=== PATIENT | female | born 1950 | race Caucasian/White ===

== ENCOUNTER 2019-09-28 07:15 | Outpatient (CLI) | payer MEDICARE, SELFPAY ==
--- NOTE | ~2019-09-28 | MM_ITS ---
EXAMINATION: MM screening jose maria BI w praveen HISTORY: Screening mammogram TECHNIQUE: Craniocaudal and mediolateral oblique 3-D tomosynthesis images were obtained and synthetic 2-D images were generated. CAD analysis was submitted and interpreted. COMPARISON: 09/23/2018 bilateral digital screening mammogram 05/31/2016 diagnostic left digital mammogram and limited left breast ultrasound 05/06/2016 bilateral digital screening mammogram BREAST PARENCHYMAL COMPOSITION: There are scattered areas of fibroglandular density. FINDINGS: There is a biopsy marker on the left seminal history of prior benign left breast biopsy. St able probable 4 mm benign intramammary lymph node in the lower outer quadrant of the left breast. The re is no evidence of suspicious mass, calcification, or architectural distortion to suggest malignanc y in either breast. There has been no suspicious interval change. IMPRESSION: 1. No mammographic evidence of malignancy. 2. Recommend routine screening mammography in one year. BI-RADS Category 2: Benign finding(s). Reviewed, dictated and finalized at location A.
== END 2019-09-28 07:16 | disposition home or self-care (01) ==
PROVIDERS: PCP Family Medicine; Visit Provider Family Medicine
DX: Z12.31 Encounter for screening mammogram for malignant neoplasm of breast (principal)
CPT/HCPCS: 77063; 77067

== ENCOUNTER → 2020-09-27 07:45 | Outpatient (CLI) | payer MEDICARE, SELFPAY ==
--- NOTE | ~2020-09-27 | US_ITS ---
US abdomen limited INDICATION: Right upper quadrant abdominal pain PROCEDURE: Realtime right upper abdominal ultrasound. COMPARISON: No prior studies for comparison. FINDINGS: The pancreas is normal without focal mass or pancreatic ductal dilation. Liver echotexture is normal without focal mass or intrahepatic biliary dilatation. There is normal directional flow i n the portal vein. There are gallstones. No gallbladder wall thickening or pericholecystic fluid. Common bile duct mitch ures 6 mm. No sonographic Carroll's sign. IMPRESSION: 1: Cholelithiasis. Reviewed, dictated and finalized at location A. IMPRESSION: 1: Cholelithiasis.
== END ==
PROVIDERS: PCP Family Medicine; Visit Provider Family Medicine
DX: R10.11 Right upper quadrant pain (principal); K80.20 Calculus of gallbladder without cholecystitis without obstruction
CPT/HCPCS: 76705

== ENCOUNTER 2020-10-25 10:29 | Outpatient (CLI) | payer MEDICARE, SELFPAY ==
--- NOTE | ~2020-10-25 | MM_ITS ---
EXAMINATION: MM screening jose maria BI w praveen HISTORY: Screening TECHNIQUE: Craniocaudal and mediolateral oblique 3-D tomosynthesis images were obtained and synthetic 2-D images were generated. CAD analysis was submitted and interpreted. COMPARISON: Comparison to multiple prior studies sequentially, with oldest reviewed study dated 10/2014. BREAST PARENCHYMAL COMPOSITION: There are scattered areas of fibroglandular density. There FINDINGS: There is a focal asymmetry laterally in the right breast on CC view. There has been slight enlargement of masses in the upper outer quadrant of the left breast. IMPRESSION: 1. Developing right breast asymmetry and left breast masses. 2. Additional mammographic views and possible breast ultrasound are recommended. BI-RADS Category 0: Incomplete: Needs additional imaging evaluation. Reviewed, dictated and finalized at location A. IMPRESSION: 1. Developing right breast asymmetry and left breast masses. 2. Additional mammographic views and possible breast ultrasound are recommended . BI-RADS Category 0: Incomplete: Needs additional imaging evaluation.
== END 2020-10-25 10:30 | disposition home or self-care (01) ==
LOC: ANHIMG 10:30
PROVIDERS: PCP Family Medicine; Visit Provider Family Medicine
DX: Z12.31 Encounter for screening mammogram for malignant neoplasm of breast (principal)
CPT/HCPCS: 77063; 77067

== ENCOUNTER 2020-10-27 08:04 | Outpatient (CLI) | payer MEDICARE, SELFPAY ==
--- NOTE | 2020-10-27 08:00 | ECG_ITS ---
Measurements Intervals [place] Rate: 69 P: 30 AK: 163 QRS: 26 QRSD: 111 T: 32 QT: 395 QTc: 424 Interpretive Statements SINUS RHYTHM INCOMPLETE RIGHT BUNDLE BRANCH BLOCK BASELINE ARTIFACT- III BORDERLINE ECG Electronically Signed On 10-27-2020 8:44:11 CDT by Julio Berrios D.O.
[2020-10-27 09:28] LABS: Alanine Aminotransferase 18 U/L (4-35); Albumin Level 4.4 g/dL (3.5-5.1); Alkaline Phosphatase 70 U/L (38-126); Amylase 64 U/L (30-110); Aspartate Amino Transferase 25 U/L (14-36); Bilirubin,Total 0.4 mg/dL (0.2-1.3); Lipase 192 U/L (23-300)
== END 2020-10-27 08:05 | disposition home or self-care (01) ==
LOC: ANHSURGERY 08:09
PROVIDERS: PCP Family Medicine; Visit Provider Surgery
DX: K80.10 Calculus of gallbladder with chronic cholecystitis without obstruction (principal); I10 Essential (primary) hypertension; Z01.818 Encounter for other preprocedural examination; I45.10 Unspecified right bundle-branch block
CPT/HCPCS: 36415; 80076; 82150; 83690; 86850; 86900; 86901; 93005

== ENCOUNTER 2020-11-02 00:31 | Day surgery (SDC) | payer MEDICARE, SELFPAY ==
[2020-10-24 14:06] VITALS: BMI 34.4
--- NOTE | 2020-11-01 12:29 | WPDANESEPPF ---
Anes - Initial Pre Proc Eval Procedure: Operation Date: 11/02/20 13:00 Proposed Procedures p Laparoscopic Cholecystectomy - Kike Hameed MD Date/Time: 11/01/20 12:29 Surgeon: Kike Hameed MD Pre Op Diagnosis: Chronic Cholecystitis with Stones Patient Data Age: 70 Gender: F Height: 1.57 m Weight: 85.45 kg Allergies Allergy/AdvReac Type Severity Reaction Status Date / Time No Known Allergies Allergy Verified 11/02/20 11:10 Home Medications Medication Instructions Recorded Confirmed Type ipratropium bromide 21 mcg (0.03 2 spray NASAL BID #30 ml 09/08/19 11/02/20 Rx %) nasal spray gabapentin 300 mg capsule See Rx Instructions PO .COMPLEX 02/13/20 11/02/20 Rx #540 cap cholecalciferol (vitamin D3) 50 50 mcg PO DAILY 02/22/20 11/02/20 History mcg (2,000 unit) capsule objqavibcqfz-dtwndbuh-nqyaix tablet 1 tablet PO DAILY 02/22/20 11/02/20 History omega-3 fatty acids 1,000 mg 1,000 mg PO DAILY 02/22/20 11/02/20 History capsule lisinopril 40 mg tablet 40 mg PO DAILY #90 tablet 07/31/20 11/02/20 Rx omeprazole 40 mg capsule,delayed 40 mg PO DAILY #90 cap 09/18/20 11/02/20 Rx release tramadol 50 mg tablet 50 mg PO Q6H PRN #90 tablet 10/18/20 11/02/20 Rx sodium,potassium,mag sulfates See Rx Instructions .ROUTE 10/23/20 Rx [Suprep Bowel Prep Kit] .COMPLEX #1 ml etodolac [Lodine] 400 mg PO BID 10/24/20 11/02/20 History hydrochlorothiazide 25 mg PO BID 10/24/20 11/02/20 History simvastatin 10 mg PO HS 10/24/20 11/02/20 History Patient hx anesthesia problems: none Family hx anesthesia problems: none PMFSH Past Medical History Medical History (Updated 11/01/20 @ 12:29 by Adarsh Tesfaye MD) Chronic renal insufficiency, stage III (moderate) Chronic rhinitis Essential hypertension FH: colon polyps Iron deficiency anemia Knee osteoarthritis Mixed hyperlipidemia Neuropathy of lower extremity Obesity (BMI 30-39.9) Prediabetes Vitamin D deficiency Surgical History Surgical History H/O oophorectomy History of knee replacement Family History Family History Other Diabetes mellitus Family history of arthritis Family history of coronary artery disease Family history of elevated blood lipids Family history of malignant neoplasm of ovary Hypertension Social History Social History Smoking status: Never smoker Second hand tobacco smoke exposure: No Alcohol intake: never Substance use: never Substance use type: does not use 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 Questions were solicited and answers provided to the satisfaction of the patient/family/POA.
[2020-11-02] VITALS (7 sets, daily range): BP systolic 101–131; BP diastolic 54–80; PULSE 47–72; RESP 12–17; TEMP 36.2–37; O2SAT 97–100
--- NOTE | 2020-11-02 10:23 | WPDHPUPDATE1 ---
History and Physical Update Update Date/Time: 11/02/20 10:23 History and Physical has been reviewed, including an updated exam of the patient. There are NO changes in the patient's condition. Risks, benefits, and alternatives have been discussed and questions answered. Patient agrees to proceed with procedure.
[2020-11-02] MEDS: ACETAMINOPHEN 500 MG TABLET 1000 MG PO (11:34)
[2020-11-02] MEDS: LACTATED RINGERS 1,000 ML 30 ML IV CONT (11:44)
[2020-11-02] MEDS: KETOROLAC 15 MG/ML VIAL (*BKC) IV PUSH (11:46)
[2020-11-02] MEDS: ceFAZolin 2 GM/D5W 50 ML 2 GM/50 ML BAG IVPB (13:11)
--- NOTE | 2020-11-02 13:23 | W.PM.PROC2 ---
Procedure Note - Detailed Date of Procedure 11/02/20 Pre-op Diagnosis Chronic Cholecystitis with Stones Post-op Diagnosis same Procedure Performed Laparoscopic cholecystectomy Surgeon Kike Hameed MD Insurance Producer James BENITEZ Anesthesia general and local (0.25% Marcaine with epinephrine) Indications Patient is a 70-year-old woman with postprandial right upper quadrant abdominal pain. The pain is worse with large and very rich foods. It sometimes is associated with vomiting and diarrhea. She was noted to have gallstones on ultrasound. She is taken to surgery now for laparoscopic cholecystectomy for chronic cholecystitis. Findings Mild chronic inflammation was noted. No biliary ductal dilatation was appreciated. Some fatty change was noted in the liver. No large stones were appreciated. Description of Procedure The patient was taken to surgery and induced into general anesthesia. The abdomen is prepped and draped. Trocars were placed in the usual fashion using 0.25% Marcaine with epinephrine an applied Medical optical trocars. The gallbladder was decompressed with a laparoscopic aspirator. The cholecystotomy was closed with a Vicryl endoloop. The gallbladder was retracted anterosuperiorly. Dissection was carried out in the cholecystohepatic triangle. The cystic duct and cystic artery were dissected out clearly. The gallbladder was dissected off the liver at its lower 3rd. Critical view was achieved. The cystic artery was very diminutive and was cauterized and divided. The cystic duct was securely clipped and divided. We then dissected the gallbladder free of its remaining peritoneal attachments to the liver. No entry into the gallbladder was made during the dissection. The gallbladder was placed then in an Endo-Catch bag and retrieved through the 10 11 epigastric trocar site. We then replaced the epigastric trocar reviewed the right upper quadrant. All looked good with no evidence of bleeding or bile leakage. We irrigated the area and suctioned dry a couple of different times. All looked satisfactory. We then evacuated CO2 and removed the trocar sleeves. Skin wounds were closed with subcuticular 4-0 Monocryl skin suture. The wounds were dressed with Exofin surgical adhesive. Patient was awakened and taken to recovery in good condition. Sponge needle counts were correct x2. Estimated Blood Loss 5 Drains No Packing No Pathology yes (Gallbladder) Complications No immediate complications Condition stable Disposition PACU
[2020-11-02] MEDS: LIDO 1%/EPINEPHRINE 1:100,000 50 ML VIAL INFILTRATE (13:41)
--- NOTE | 2020-11-02 14:43 | SUR.PHASEI ---
1430-DR. DANIELS AT [facility] TO SPEAK WITH PT.
== END 2020-11-02 15:45 | disposition home or self-care (01) ==
PROVIDERS: PCP Family Medicine; Visit Provider Surgery
PROC: 0FT44ZZ Resection of Gallbladder, Percutaneous Endoscopic Approach (ICD-10-PCS; CPT 47562; principal; 2020-11-02 13:00)
DX: K80.10 Calculus of gallbladder with chronic cholecystitis without obstruction (principal); I12.9 Hypertensive chronic kidney disease with stage 1 through stage 4 chronic kidney disease, or unspecified chronic kidney disease; N18.30 Chronic kidney disease, stage 3 unspecified; D50.9 Iron deficiency anemia, unspecified; E78.2 Mixed hyperlipidemia; R73.03 Prediabetes; G62.9 Polyneuropathy, unspecified; E55.9 Vitamin D deficiency, unspecified; E66.9 Obesity, unspecified; Z68.33 Body mass index [BMI] 33.0-33.9, adult
CPT/HCPCS: 47562; 36415; 80076; 82150; 83690; 86850; 86900; 86901; 88304; 93005; A9270; C1713; J0690; J1100; J1885; J2001; J2405; J2704; J2710; J3010; J7120

== ENCOUNTER → 2020-11-27 09:13 | Outpatient (CLI) | payer MEDICARE, SELFPAY ==
--- NOTE | ~2020-11-27 | MMUS_ITS ---
EXAMINATION: MM diagnostic jose maria BI w praveen, US breast LT limited HISTORY: Developing right breast asymmetry and left breast masses TECHNIQUE: Additional 3-D tomosynthesis images of both breasts were performed and synthetic 2-D image s were generated. CAD analysis was submitted and interpreted. High resolution left upper outer and lo wer outer breast ultrasound was performed. COMPARISON: 10/25/2020 bilateral digital screening mammogram 09/23/2018, 05/06/2016 bilateral digital screening mammogram FINDINGS: MAMMOGRAPHIC FINDINGS: There is a biopsy marker anteriorly in the upper outer left breast; history of prior benign left breast biopsy. There is a 5 mm circumscribed mass in the mid to posterior lower outer left breast, present on 017, not significantly changed. There is a 3 mm circumscribed mass in the mid to posterior lower mid left breast not significantly ch anged since 05/06/2016. No suspicious mass or architectural distortion, malignant calcification, skin thickening or retractio n or significant new finding of either breast is evident. ULTRASOUND: 2:00 5 cm from nipple: Septated 2.4 x 2.8 mm cyst 4:00 5 cm from nipple: 4.3 x 6.2 mm circumscribed sonolucency, consistent with benign cyst IMPRESSION: 1. Benign findings. No mammographic evidence of malignancy 2. Routine mammographic screening is recommended. BI-RADS Category 2: Benign finding(s). Reviewed, dictated and finalized at location A. IMPRESSION: 1. Benign findings. No mammographic evidence of malignancy 2. Routine mammographic screening is recommended. BI-RADS Category 2: Benign finding(s).
== END ==
PROVIDERS: PCP Family Medicine; Visit Provider Physician Assistant
DX: R92.8 Other abnormal and inconclusive findings on diagnostic imaging of breast (principal)
CPT/HCPCS: 76642; 77062; 77066; G0279

== ENCOUNTER 2020-12-08 01:32 | Day surgery (SDC) | payer MEDICARE, SELFPAY ==
[2020-11-16 13:27] VITALS: BMI 33.0
[2020-12-08 06:48] VITALS: BP 115/73; PULSE 79; RESP 19; TEMP 36.1; O2SAT 98; BMI 32.4
[2020-12-08] MEDS: LACTATED RINGERS 1,000 ML 150 ML IV CONT (06:52)
--- NOTE | 2020-12-08 07:05 | WPDANESEPPF ---
Anes - Initial Pre Proc Eval Procedure: Operation Date: 12/08/20 08:00 Proposed Procedures p Screening Colonoscopy - James Yan MD Date/Time: 12/08/20 07:05 Surgeon: James Yan MD Pre Op Diagnosis: family hx of colon polyps Patient Data Age: 70 Gender: F Height: 1.57 m Weight: 80.5 kg Last Vital Signs Temp 36.1 C L 12/08/20 06:48 Pulse 79 12/08/20 06:48 Resp 19 12/08/20 06:48 BP 115/73 12/08/20 06:48 Pulse Ox 98 12/08/20 06:48 Allergies Allergy/AdvReac Type Severity Reaction Status Date / Time No Known Allergies Allergy Verified 12/08/20 06:47 Home Medications Medication Instructions Recorded Confirmed Type ipratropium bromide 21 mcg (0.03 2 spray NASAL BID #30 ml 09/08/19 12/08/20 Rx %) nasal spray cholecalciferol (vitamin D3) 50 50 mcg PO DAILY 02/22/20 12/08/20 History mcg (2,000 unit) capsule tgfcekmsxhkm-pdtbhhfa-oselkn tablet 1 tablet PO DAILY 02/22/20 12/08/20 History omega-3 fatty acids 1,000 mg 1,000 mg PO DAILY 02/22/20 12/08/20 History capsule lisinopril 40 mg tablet 40 mg PO DAILY #90 tablet 07/31/20 12/08/20 Rx omeprazole 40 mg capsule,delayed 40 mg PO DAILY #90 cap 09/18/20 12/08/20 Rx release etodolac [Lodine] 400 mg PO BID 10/24/20 12/08/20 History hydrochlorothiazide 25 mg PO BID 10/24/20 12/08/20 History simvastatin 10 mg PO HS 10/24/20 12/08/20 History gabapentin 300 mg capsule See Rx Instructions PO .COMPLEX 11/24/20 12/08/20 Rx #540 cap tramadol 50 mg tablet 50 mg PO Q6H PRN #90 tablet 12/04/20 12/08/20 Rx Patient hx anesthesia problems: none Family hx anesthesia problems: none Results Review: All pre-operative results and documents have been reviewed as part of the pre-operative evaluation. [facility] Past Medical History Medical History Chronic renal insufficiency, stage III (moderate) Chronic rhinitis Essential hypertension FH: colon polyps Iron deficiency anemia Knee osteoarthritis Mixed hyperlipidemia Neuropathy of lower extremity Obesity (BMI 30-39.9) Prediabetes Vitamin D deficiency Surgical History Surgical History H/O oophorectomy History of knee replacement Hx laparoscopic cholecystectomy 11/02/20 Family History Family History Other Diabetes mellitus Family history of arthritis Family history of coronary artery disease Family history of elevated blood lipids Family history of malignant neoplasm of ovary Hypertension Social History Social History Smoking status: Never smoker Second hand tobacco smoke exposure: No Alcohol intake: never Substance use: never Substance use type: does not use Living arrangements: alone 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 Informed Consent: The patient's anesthetic plan and its attendant risks and benefits were discussed with the patient/family/POA. Questions were solicited and answers provided to the satisfaction of the patient/family/POA.
--- NOTE | 2020-12-08 07:23 | WPDGICN ---
Assessment and Plan Assessment and plan (1) FH: colon polyps: Code(s): Z83.71 - Family history of colonic polyps Status: Acute Assessment and Plan: Patient has a family history of colon polyps in father. For this reason surveillance colonoscopy is been suggested 5 year intervals. Patient has no immediate complaints. Plan is for colonoscopy which will be performed today. GI Consult Note Consult date/time: 12/08/20 07:23 HPI: Leonela Soto is a 70 year old female Presents for screening colonoscopy. She reports that her current weight appetite bowel movements are normal. She denies abdominal pain. She has had no bleeding. Her last colonoscopy 2014 was unremarkable. Family history is significant that her father has had colon polyps on several occasions. There is no history of colon cancer in the family. Patient presents today for screening exam. Review of Systems Review of Systems: All systems reviewed & are unremarkable except as noted in HPI and below PMFSH Past Medical History Medical History Chronic renal insufficiency, stage III (moderate) Chronic rhinitis Essential hypertension FH: colon polyps Iron deficiency anemia Knee osteoarthritis Mixed hyperlipidemia Neuropathy of lower extremity Obesity (BMI 30-39.9) Prediabetes Vitamin D deficiency Surgical History Surgical History H/O oophorectomy History of knee replacement Hx laparoscopic cholecystectomy 11/02/20 Family History Family History Other Diabetes mellitus Family history of arthritis Family history of coronary artery disease Family history of elevated blood lipids Family history of malignant neoplasm of ovary Hypertension Social History Social History Smoking status: Never smoker Second hand tobacco smoke exposure: No Alcohol intake: never Substance use: never Substance use type: does not use Living arrangements: alone Additional occupation/education comments: [employer] Gender identity (if verbalized by the patient): Female Spiritual care concerns: No Meds Home Medications and Allergies Home Medications Medication Instructions Recorded Confirmed Type ipratropium bromide 21 mcg (0.03 2 spray NASAL BID #30 ml 09/08/19 12/08/20 Rx %) nasal spray cholecalciferol (vitamin D3) 50 50 mcg PO DAILY 02/22/20 12/08/20 History mcg (2,000 unit) capsule rnsjjparsvgj-owegjegw-xsiarn tablet 1 tablet PO DAILY 02/22/20 12/08/20 History omega-3 fatty acids 1,000 mg 1,000 mg PO DAILY 02/22/20 12/08/20 History capsule lisinopril 40 mg tablet 40 mg PO DAILY #90 tablet 07/31/20 12/08/20 Rx omeprazole 40 mg capsule,delayed 40 mg PO DAILY #90 cap 09/18/20 12/08/20 Rx release etodolac [Lodine] 400 mg PO BID 10/24/20 12/08/20 History hydrochlorothiazide 25 mg PO BID 10/24/20 12/08/20 History simvastatin 10 mg PO HS 10/24/20 12/08/20 History gabapentin 300 mg capsule See Rx Instructions PO .COMPLEX 11/24/20 12/08/20 Rx #540 cap tramadol 50 mg tablet 50 mg PO Q6H PRN #90 tablet 12/04/20 12/08/20 Rx Allergies Allergy/AdvReac Type Severity Reaction Status Date / Time No Known Allergies Allergy Verified 12/08/20 06:47 Vital Signs Vital Signs - 24 hr 12/08/20 06:48 Temperature 97 F L Pulse Rate 79 Respiratory Rate 19 Blood Pressure 115/73 Pulse Oximetry 98 Exam Narrative: Physical exam reveals patient to be alert. Vital signs stable. HEENT exam is unremarkable. Patient is anicteric. Lungs are clear to auscultation and percussion. Heart is without murmur or extra sounds. Abdominal exam bowel sounds are present soft nontender with no organomegaly. Digital external rectal exam is normal.
[2020-12-08 08:12] VITALS: BP 84/48; PULSE 63; RESP 16; O2SAT 98
[2020-12-08 08:22] VITALS: BP 92/56; PULSE 57; RESP 22; O2SAT 100
[2020-12-08 08:32] VITALS: BP 102/56; PULSE 56; RESP 16; O2SAT 100
== END 2020-12-08 08:53 | disposition home or self-care (01) ==
PROVIDERS: PCP Family Medicine; Visit Provider Internal Medicine Gastroenterology
PROC: 0DJD8ZZ Inspection of Lower Intestinal Tract, Via Natural or Artificial Opening Endoscopic (ICD-10-PCS; CPT 45378; principal; 2020-12-08 08:00)
DX: Z12.11 Encounter for screening for malignant neoplasm of colon (principal); Z83.71 Family history of colonic polyps; I12.9 Hypertensive chronic kidney disease with stage 1 through stage 4 chronic kidney disease, or unspecified chronic kidney disease; N18.30 Chronic kidney disease, stage 3 unspecified; K64.8 Other hemorrhoids; D50.9 Iron deficiency anemia, unspecified; E55.9 Vitamin D deficiency, unspecified; E78.2 Mixed hyperlipidemia; M17.10 Unilateral primary osteoarthritis, unspecified knee; G62.9 Polyneuropathy, unspecified; R73.03 Prediabetes; Z96.659 Presence of unspecified artificial knee joint; Z90.49 Acquired absence of other specified parts of digestive tract
CPT/HCPCS: G0105; J2704; J7120

== ENCOUNTER 2020-12-14 08:59 | Outpatient (CLI) | payer MEDICARE, SELFPAY ==
[2020-12-14 10:08] LABS: Basophils Absolute Auto 0.1 K/mm3 (0.0-0.1); Basophils Percent Auto 0.7 % (0.2-1.2); Eosinophils Absolute Auto 0.1 K/mm3 (0-0.3); Eosinophils Percent Auto 1.1 % (0-4.4); Hematocrit 39.4 % (37.0-47.0); Hemoglobin 12.7 g/dL (12.0-15.0); Immature Granulocyte Absolute 0.04 K/mm3 (0.00-0.031); Immature Granulocyte Percent A 0.3 % (0-0.5); Lymphocytes Absolute Auto 2.84 K/mm3 (0.9-3.2); Lymphocytes Percent Auto 23.2 % (18.3-44.2); Mean Corpuscular HGB Conc 32.2 g/dl (32-36); Mean Corpuscular Hemoglobin 29.5 pg (26-34); Mean Corpuscular Volume 91.4 fl (80-100); Mean Platelet Volume 10.3 fl (7.4-10.4); Monocytes Percent Auto 7.9 % (2.6-8.5); Neutrophils Absolute Auto 8.2 K/mm3 (1.3-6.7); Neutrophils Percent Auto 66.8 % (45.5-73.1); Platelet Count Result 297 k/mm3 (150-375); Red Blood Count 4.31 M/mm3 (4.2-5.4); Red Cell Distribution Width 12.8 % (11.5-14.5); White Blood Count 12.2 K/mm3 (4.5-10.0)
[2020-12-14 10:39] LABS: Alanine Aminotransferase 17 U/L (4-35); Albumin Level 4.6 g/dL (3.5-5.1); Alkaline Phosphatase 65 U/L (38-126); Anion Gap 10 mmol/L (8-16); Aspartate Amino Transferase 25 U/L (14-36); Bilirubin,Total 0.8 mg/dL (0.2-1.3); Blood Urea Nitrogen 16 mg/dL (7-17); Calcium 10.5 mg/dL (8.4-10.2); Carbon Dioxide 34 mmol/L (22-30); Chloride 93 mmol/L (98-107); Estimated Glomerular Filt Rate > 60; Glucose 106 mg/dL (65-110); Lipase 124 U/L (23-300); Potassium 3.1 mmol/L (3.4-5.0); Sodium 137 mmol/L (137-145)
== END 2020-12-14 09:00 | disposition home or self-care (01) ==
PROVIDERS: PCP Family Medicine; Visit Provider Surgery
DX: R10.11 Right upper quadrant pain (principal); R11.2 Nausea with vomiting, unspecified
CPT/HCPCS: 36415; 80053; 83690; 85025

== ENCOUNTER 2021-05-02 10:53 | Outpatient (CLI) | payer MEDICARE, SELFPAY | END 2021-05-02 10:54 | disposition home or self-care (01) | LOC: ANHAUDIO 10:55 | PROVIDERS: PCP Family Medicine; Visit Provider Family Medicine | DX: H91.90 Unspecified hearing loss, unspecified ear (principal) | CPT/HCPCS: 99199 ==

== ENCOUNTER 2021-05-23 09:38 | Outpatient (CLI) | payer MEDICARE, SELFPAY | END 2021-05-23 09:39 | disposition home or self-care (01) | LOC: ANHAUDIO 09:39 | PROVIDERS: PCP Family Medicine; Visit Provider Family Medicine | DX: H91.90 Unspecified hearing loss, unspecified ear (principal) | CPT/HCPCS: 92557; 92567 ==

== ENCOUNTER 2022-04-03 15:00 | Outpatient (CLI) | payer MEDICARE, SELFPAY ==
--- NOTE | ~2022-04-03 | MM_ITS ---
EXAMINATION: MM screening jose maria BI w praveen HISTORY: Screening mammogram TECHNIQUE: Craniocaudal and mediolateral oblique 3-D tomosynthesis images were obtained and synthetic 2-D images were generated. CAD analysis was submitted and interpreted. COMPARISON: 11/27/2020 diagnostic bilateral mammogram and limited left breast ultrasound examination 10/25/2020, 09/28/2019, 09/23/2018 bilateral screening mammogram examinations BREAST PARENCHYMAL COMPOSITION: There are scattered areas of fibroglandular density. FINDINGS: Biopsy marker in the left breast; history of prior benign biopsy. Stable 4 mm circumscribed opacity in the posterior lower outer left breast, benign in appearance. There is no evidence of susp icious mass, calcification, or architectural distortion to suggest malignancy in either breast. There has been no suspicious interval change. IMPRESSION: 1. No mammographic evidence of malignancy. 2. Recommend routine screening mammography in one year. BI-RADS Category 2: Benign finding(s). Reviewed, dictated and finalized at location A. LINER
--- NOTE | ~2022-04-03 | DEXA_ITS ---
Bone Density Report Name: JENNY RUSSO Age: 72 Sex: Female Ethnicity: White Date of : 1950 Indication: postmenopausal; screening for osteoporosis; height loss; hysterectomy; Referring Provider: JESSE REYNOLDS Study: Bone densitometry was performed. Exam Date: April 03, 2022 Accession number: [id number] Bone Density: Region BMD T-score Z-score Classification AP Spine(L1-L4) 1.138 0.8 3.1 Normal Femoral Neck (Left) 0.670 -1.6 0.3 Osteopenia Total Hip (Left) 0.843 -0.8 0.8 Normal Femoral Neck (Right) 0.658 -1.7 0.2 Osteopenia Total Hip (Right) 0.720 -1.8 -0.2 Osteopenia Total Hip Mean 0.782 -1.3 0.3 Osteopenia World Health Organization criteria for BMD impression classify patients as: Normal (T-score at or above -1.0), Osteopenia (T-score between -1.0 and -2.5), or Osteoporosis (T-score at or below -2.5). 10-year Fracture Risk(1): Major Osteoporotic Fracture 10% Hip Fracture 1.8% Reported Risk Factors: [place] (), Neck BMD=0.658, BMI=35.1 (1) FRAX(R) Version 3.08. Fracture probability calculated for an untreated patient. Fracture probability may be lower if the patient has received treatment. Clinical Information Provided by Patient: Has used the following medications: Vitamin D Has the following medical conditions: Hysterectomy Patient maximum height was 63 Menopause Age: 48 Drinks caffeinated beverages Onset of menses at age 13 Number of children 1 Impression: The patient has low bone mass, based on the Right Total Hip T-score. The patient has an estimated ten-year risk of hip fracture of 1.8% and an estimated ten-year risk of major fracture of 10%, based on the WHO FRAX algorithm. Discussion: BONE DENSITY IS LOW AT ONE OR MORE SKELETAL SITES. This patient's lowest T-score is low at one or more skeletal sites. It meets the World Health Organization's (WHO) criteria for ?low bone mass? (T-score between -1.0 and -2.5). The patient's 10-year risk of fracture as calculated by FRAX is less than the threshold where pharmacological therapy is recommended by the National Osteoporosis Foundation (NOF). However, all treatment decisions require clinical judgment and consideration of individual patient factors, including patient preferences, comorbidities, previous drug use, risk factors not captured in the FRAX model (e.g., frailty, falls, vitamin D deficiency, increased bone turnover, interval significant decline in bone density) and possible under or overestimation of fracture risk by FRAX. The patient should follow a healthful lifestyle (good nutrition with adequate calcium and vitamin D, and appropriate weight-bearing exercise). Follow-Up: Consider repeating this study in 2 to 3 years to reassess this patient's status, or sooner if there is some new clin
== END 2022-04-03 15:01 | disposition home or self-care (01) ==
LOC: ANHIMG 15:03
PROVIDERS: PCP Family Medicine; Visit Provider Physician Assistant
DX: Z12.31 Encounter for screening mammogram for malignant neoplasm of breast (principal); Z78.0 Asymptomatic menopausal state; M85.852 Other specified disorders of bone density and structure, left thigh; M85.851 Other specified disorders of bone density and structure, right thigh
CPT/HCPCS: 77063; 77067; 77080

== ENCOUNTER 2023-06-19 09:38 | Outpatient (CLI) | payer MEDICARE, SELFPAY ==
--- NOTE | ~2023-06-19 | MM_ITS ---
EXAMINATION: MM screening jose maria BI w praveen HISTORY: Screening mammogram TECHNIQUE: Craniocaudal and mediolateral oblique 3-D tomosynthesis images were obtained and synthetic 2-D images were generated. CAD analysis was submitted and interpreted. COMPARISON: April 03, 2022 bilateral screening mammogram 11/27/2020 diagnostic bilateral mammogram and limited left breast ultrasound 10/25 sagittal 21 bilateral screening mammogram examination BREAST PARENCHYMAL COMPOSITION: There are scattered areas of fibroglandular density. FINDINGS: Biopsy marker on the left; history of prior benign left breast biopsy. There is no evidence of suspicious mass, calcification, or architectural distortion to suggest malignancy in either breas t. There has been no suspicious interval change. IMPRESSION: 1. No mammographic evidence of malignancy. 2. Recommend routine screening mammography in one year. BI-RADS Category 1: Negative Reviewed, dictated and finalized at location B.
== END 2023-06-19 09:39 | disposition home or self-care (01) ==
PROVIDERS: PCP Family Medicine; Visit Provider Family Medicine
DX: Z12.31 Encounter for screening mammogram for malignant neoplasm of breast (principal)
CPT/HCPCS: 77063; 77067

== ENCOUNTER 2024-08-19 09:38 | Outpatient (CLI) | payer MEDICARE, SELFPAY ==
--- NOTE | ~2024-08-19 | MM_ITS ---
EXAMINATION: MM screening [facility] BI w praveen HISTORY: Screening mammogram TECHNIQUE: Craniocaudal and mediolateral oblique 3-D tomosynthesis images were obtained and synthetic 2-D images were generated. CAD analysis was submitted and interpreted. COMPARISON: 06/19/2023, 04/03/2022, 10/25/2020 BREAST PARENCHYMAL COMPOSITION:Not Dense. There are scattered areas of fibroglandular density. FINDINGS: No suspicious mass, calcification, or architectural distortion are identified in either adarsh ast to suggest malignancy. There has been no suspicious interval change. IMPRESSION: No mammographic evidence of malignancy. Recommend routine screening mammography in one year. BI-RADS Category 1: Negative Reviewed, dictated and finalized at location .
--- OUTSIDE RECORDS SUMMARY | 2024-08-19 09:42 | XMS_ITS | Clinical Summary ---
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 Phone Judith Hopson MD Primary Care Provider [phone] Allergies No known active allergies Medications hydroCHLOROthiaz darinel 25 mg tablet 2 07/18/2016 Ac tive quinapril (ACCUPRIL) 40 mg tablet 2 07/18/2016 Active simvastatin (ZOCOR) 20 mg tablet 1 07/18/2016 Active traMADol (ULTRAM) 50 mg tablet TK 1 T PO Q 6 H PRN 1 07/12/2016 Active gabapentin (NEURONTIN) 300 mg capsule 2 07/20/2016 Active diclofenac sodium (VOLTAREN) 50 mg Tablet, Delayed Release (E.C.) 07/28/2018 Acti ve Active Problems Patient Care Coordination No te Formatting of this note migh t be different from the original. Primary Care: Judith Hopson MD Referring Provider: Judith Hopson MD [address] [place] [address] Other: Problem Noted Date Diagnosed Date Fibroadenoma, left 09/24/2018 Breast changes, fibrocystic, left 09/24/2018 Screening for breast cancer 08/19/2016 Family History Medical History Relation Name Comments Breast Cancer Neg Hx Ovarian Cancer Neg Hx Social History Tobacco Use Types Packs/Day Years Used Date Smoking Tobacco: Never Smokeless Tobacco: Never Alcohol Use Standard Drinks/Week Comments Not Currently 0 (1 standard drink = 0.6 oz pur e alcohol) Comments No Sex and Gender Information Value Date Recorded Sex Assigned at Not on file Legal Sex Female 7:30 PM VACU[employer] Gender Identity Not on file Sexual Orientation Not on file Last Filed Vital Signs Vital Sign Reading Time Taken Comments Blood Pressure 122/50 09/24/2018 11:23 AM CDT Pulse 73 09/24/2018 11:23 AM CDT Temperature 36.7 C (98.1 F) 09/24/2018 11:23 AM CDT Respiratory Rate - - Oxygen Saturation 98% 09/24/2018 11:23 AM CDT Inhaled Oxygen Concentration - - Weight 97.6 kg (215 lb 3.2 oz) 09/24/2018 11:23 AM CDT Height 160 cm (5' 3) 09/24/2018 11:23 AM CDT Body Mass Index 38.12 09/24/2018 11:23 AM CDT Plan of Treatment Health Maintenance Due Date Last Done Comments DTAP/TDAP/TD VACCINES (1 - Tdap) 1969 COLORECTAL SCREENING 1995 Colorectal Cancer Screening 1995 FIT-DNA Q 3 years 1995 FIT/FOBT Q 1 year 1995 Flex Sig/CT Colonography Q 5 years 1995 PNEUMOCOCCAL VACCINE 50+ YEA RS (1 of 1 - PCV) 01/21/2000 ZOSTER VACCINE (1 of 2) 01/21/2000 OSTEOPOROSIS SCREENING 2015 BREAST CANCER SCREENING 09/24/2019 09/24/19 19, 09/23/2018, 08/20/2018, Additional history exists INFLUENZA VACCINE (#1) 2024 RSV VACCINE (60+ or ) (1 - 1-dose 75+ series) 2025 Procedures Procedure Name Priority Date/Time Associated Diagnosis Comments MAMMOGRAM REPORT Routine 09/23/2018 from Last 3 Months or Most Recently Relevant to Health Maintenance Results * MAMMOGRAM REPORT (09/23/2018) us Abstract Provider MAMMO ORDERABLES Final Result [facility] from Last 3 Months or Most Recently Relevant to Health Maintenance Insurance MEDICARE PART A AND B [facility] [id number] Care Teams Hvac Sheet Metal Installer Helper Relationship Specialty Start Date End Date Judith Hopson MD [address] [place] [address] PCP - General Family Practice 08/14/16
== END 2024-08-19 09:39 | disposition home or self-care (01) ==
LOC: ANHIMG 09:39
PROVIDERS: PCP Family Medicine; Visit Provider Student in an Organized Health Care Education/Training Program
DX: Z12.31 Encounter for screening mammogram for malignant neoplasm of breast (principal)
CPT/HCPCS: 77063; 77067

== ENCOUNTER 2024-11-19 10:00 | Outpatient (CLI) | payer MEDICARE, SELFPAY ==
--- NOTE | ~2024-11-19 | XR_ITS ---
EXAMINATION: [id number], 11/19/2024 10:04 CDT HISTORY: M25.561 - Pain in right knee COMPARISON: No comparisons available. Findings: No acute fracture or malalignment. Knee prosthesis intact Soft tissues unremarkable. Impression: No acute fracture or malalignment. Reviewed, dictated and finalized at location P. Impression: No acute fracture or malalignment.
== END 2024-11-19 10:01 | disposition home or self-care (01) ==
LOC: MICIMG 10:01
PROVIDERS: PCP Student in an Organized Health Care Education/Training Program; Visit Provider Student in an Organized Health Care Education/Training Program
DX: M25.561 Pain in right knee (principal)
CPT/HCPCS: 73560

== ENCOUNTER 2025-01-13 09:00 | Outpatient (RCR) | payer MEDICARE, SELFPAY ==
--- NOTE | 2024-12-15 15:22 | OPREHPOC ---
Outpatient Therapy Plan of Care This is a Multidisciplinary Plan of Care that may contain components documented by all disciplines (PT, OT, and ST.) PT Problem 1 PT Problem #1 Knowledge Deficit PT Goal 1 Goal / Goal Update *independent with HEP Target Visit 8 PT Problem 2 PT Problem #2 Pain PT Goal 1 Goal / Goal Update 1* pt report pain rating at worst of 02/10o 2* pt report awakening 1x/wk from sleeping due to knee pain Target Visit 8 PT Problem 3 PT Problem #3 Impaired Strength PT Goal 1 Goal / Goal Update increase strength to improve stability to knee and hip: 1* R hip extension 4/5 2* R hip abduction 4/5 3* single leg standing x 10 seconds with good stability Target Visit 8 PT Problem 4 PT Problem #4 Impaired Flexibility PT Goal 1 Goal / Goal Update increase flexibility of R hip and knee to improve biomechanics of the joints 1* hamstring length with supine SLR 60' 2* knee flexion in sitting 105' 3* anterior hip-quad length with prone knee flexion 100' Target Visit 8
--- NOTE | 2024-12-15 15:22 | PTOPEVAL1 ---
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 Reported Pain Level Pain Score 2: Self Report Additional Pain Score Comments pain has been staying at 2/10; medial and distal patellar areas; knee some swelling- not as much as at beginning, knee feels like it slides to the inside of leg; with sleeping, awaken 3x/wk due to knee pain increase pain: weight bearing decrease pain: sit, rest is taking tramadol and gabapentin for LE pain and neuropathy Assessment PT Clinical Summary Leonela has the diagnosis of R knee pain. LE functional scale self rating of 34% limitation in activity level. Her pain is increased with standing and weight bearing on R Leg. She is active and retired. xray was negative. 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 With the evaluation: decreased flexibility with R: knee flexion, hamstring, anterior hip/quad and weakness over hip abduction and extension; 2 minute walking test distance of 480' and 5 reps sit/stand time of 16 seconds; stand with trunk and hip flexion and patella lateral tilt. Skilled PT services are indicated for modalities to decrease pain and swelling; therapeutic exercises to increase strength and flexibility with education for HEP and pain management. Plan of Care Interventions Electrical Stimulation,Hot Pack/Cold Pack, Intermittent Compression Pump,Manual Therapy,Neuro Re-education,Patient/Caregiver Education, Therapeutic Exercise,Ultrasound,Other Other Interventions taping PT Services Indicated Yes Treatment Frequency and 1-2x/wk for 8 visits Duration These treatments will address the objective and functional deficits as defined above. The patient will be advanced safely and appropriately in order for the patient to progress towards his/her prior level of function. Additional exercises will be introduced and as well as a comprehensive home exercise program upon discharge, if needed, ?to ensure carryover of functional gains achieved in the clinic. This treatment plan has been reviewed and agreement upon by the patient.
--- NOTE | 2025-01-13 09:43 | OPREHPOC ---
Outpatient Therapy Plan of Care This is a Multidisciplinary Plan of Care that may contain components documented by all disciplines (PT, OT, and ST.) PT Problem 1 PT Problem #1 Knowledge Deficit PT Goal 1 Goal / Goal Update *independent with HEP 01-12-25 d/c goal met Target Visit 8 Progress Met PT Problem 2 PT Problem #2 Pain PT Goal 1 Goal / Goal Update 1* pt report pain rating at worst of 02/10o 2* pt report awakening 1x/wk from sleeping due to knee pain 01-12-25 d/c goals met Target Visit 8 Progress Met PT Problem 3 PT Problem #3 Impaired Strength PT Goal 1 Goal / Goal Update increase strength to improve stability to knee and hip: 1* R hip extension 4/5 2* R hip abduction 4/5 3* single leg standing x 10 seconds with good stability 01-12-25 d/c goals 1,2 met Target Visit 8 PT Problem 4 PT Problem #4 Impaired Flexibility PT Goal 1 Goal / Goal Update increase flexibility of R hip and knee to improve biomechanics of the joints 1* hamstring length with supine SLR 60' 2* knee flexion in sitting 105' 3* anterior hip-quad length with prone knee flexion 100' 01-12-25 d/c goals met Target Visit 8 Progress Met
--- NOTE | 2025-01-13 09:43 | PTOPDC ---
Assessment and note entered by Elizabeth Godinez, PT Assessment Status Discharge ICD-10 Condition Codes (PT) Pain in right knee M25.561,Weakness R53.1 Onset Oct 2024 Subjective Information knee is better, stronger and walking better, on stairs too; doing the exercises without any problems; using the stationary bike at home; ready to be done with therapy. Reported Pain Level Pain Score Self Report Additional Pain Score Comments pain range of 0-1/10 in past week; increase pain: more stairs; decrease pain: rest, sit no issues with sleeping due to knee pain Assessment PT Clinical Summary Leonela has received 8 PT sessions. She has improved in all areas: with today's assessment: pain rating 0-1/10; self assessment with LE functional scale 28% limitation in activity; increase strength of R hip and knee; increase flexibility of R hamstrings and anterior hip-quad muscles, and R knee flexion to 120'; education for HEP. The goals were achieved, except single leg standing time. Discharge PT services; she is to continue with her HEP. Plan of Care PT Services Indicated No
== END 2025-01-13 11:46 | disposition home or self-care (01) ==
LOC: ANHPT 09:00
PROVIDERS: PCP Student in an Organized Health Care Education/Training Program; Visit Provider Student in an Organized Health Care Education/Training Program
DX: M25.561 Pain in right knee (principal)
CPT/HCPCS: 97110; 97116; 97140; 97161; 97530